=== PATIENT | female | born 2000 | race African-American/Black ===

== ENCOUNTER 2024-08-30 10:25 | Outpatient (REF) | payer OTHER, SELFPAY ==
[2024-08-30 11:22] LABS: Hematocrit 39.3 % (37.0-47.0); Hemoglobin 12.8 g/dl (12.0-16.0); Mean Corpuscular HGB Conc 32.6 g/dl (31.0-35.0); Mean Corpuscular Hemoglobin 27.9 pg (27.0-33.0); Mean Corpuscular Volume 85.8 fL (80.0-98.0); Mean Platelet Volume 10.2 fL (9.4-12.3); Platelet Count 241 X10*3/uL (160-400); Red Blood Count 4.58 X10*6/uL (4.20-5.50); Red Cell Distribution Width 13.8 % (11.0-16.0); White Blood Count 6.9 X10*3/uL (4.8-10.8)
[2024-08-30 11:45] LABS: Estimated Average Glucose 97 mg/dL; Hemoglobin A1C 101.6484 umol/L; Total Hemoglobin (HGBA1C) 3243.7663 umol/L
--- OUTSIDE RECORDS SUMMARY | 2024-08-30 11:49 | XMS_ITS | Encounter Summary ---
Author Organization [employer] Address [address] [place] [address] Care Team Providers Care Horizontal Resaw Operator Name Role Phone Taina Hernandezfer Primary Care Provider Encounter Details Date Type Department Care Team (Latest Contact Info) Description 08/30/2024 Travel Social History Tobacco Use Types Packs/Day Years Used Date Smoking Tobacco: Never Smokeless Tobacco: Never Alcohol Use Standard Drinks/Week Comments Never 0 (1 standard drink = 0.6 oz pur e alcohol) Depression Answer Date Recorded Patient Health Questionnaire-9 Score 18 08/30/2024 Patient Health Questionnaire-9 Score 18 08/30/2024 Last PHQ-9: Questionnaire Data Not on file 0 08/30/2024 Housing Stability Answer Date Recorded What is your housing situation today? I do not have housing (Staying with others, in a hotel, in a senior living, living outside on the street, on a beach, in a car, or in a park 08/30/[address] you li ve. Do you have problems with any of the following? None of the above 08/30/2024 Food Insecurity Answer Date Recorded Within the past 12 months, y ou worried that your food would run out before you got money to buy more: Often true 08/30/2024 Within the past 12 months,th e food you bought just didn't last and you didn't have enough money to get more: Often true Transportation Answer Date Recorded In the past 12 months, has l ack of transportation kept you from medical appts, meetings, work or from getting things needed for daily living? No 08/17/2024 Utilities Answer Date Recorded In the past 12 months, has t he electric, gas, oil or water company threatened to shut off services in your home? No 08/17/2024 Depression Answer Date Recorded Patient Health Questionnaire-2 Score 4 08/30/2024 Internet Access Answer Date Recorded Internet Access Q1 Yes 08/17/2024 Internet Access Q2 Not on file 08/17/2024 Comments No Sex and Gender Information Value Date Recorded Sex Assigned at Female 01/07/2024 10:04 AM EDT Legal Sex Female 10:04 AM EDT Gender Identity Female 01/07/2024 10:04 AM EDT Sexual Orientation Don't know 08/30/2024 8: 23 AM EDT documented as of this encounter Plan of Treatment Not on file documented as of this encounter Visit Diagnoses Not on filedocumented in this encounter Additional Health Concerns Assessment Noted Time PHQ-9 Depression Total Score: 18 025 9:22 AM EDT documented as of this encounter Care Teams Horizontal Resaw Operator Relationship Specialty Start Date End Date Jackie Hernandez DO [address] [place] [phone] PCP - General Family Medicine 08/30/24 documented as of this encounter
--- OUTSIDE RECORDS SUMMARY | 2024-08-30 11:49 | XMS_ITS | Clinical Summary ---
Author Organization [facility] ity Address [address] [place] [address] Care Team Providers Care Heel Sander Name Role Phone Unavailable Primary Care Provider Unavailabl e Social History Tobacco Use Types Packs/Day Years Used Date Smoking Tobacco: Never Assessed Comments Unknown Sex and Gender Information Value Date Recorded Sex Assigned at Not on file Legal Sex Female 8:09 PM EST Gender Identity Not on file Sexual Orientation Not on file Plan of Treatment Health Maintenance Due Date Last Done Comments Gonorrhea/Chlamydia Screening 2001 HPV Vaccines (1 - 3-dose series) 2016 Meningococcal B Vaccine (1 o f 2 - Standard) 2017 DTaP,Tdap,and Td Vaccines (1 - Tdap) 2020 Hepatitis B Vaccines (1 of 3 - 19+ 3-dose series) 2020 Cervical Cancer Screening: P ap Smear 2022 Depression Screening 05/27/2023 HIV Screening 05/27/2023 Hepatitis C Screening 05/27/2023 Social Influencers of Health Screening 05/27/2023 COVID-19 Vaccine (1 - 2023-2 5 season) 2024 Influenza Vaccine (Season Ended) 2025 HIB Vaccines Aged Out No longer eligi ble based on patient's age to complete this topic Hepatitis A Vaccines Aged Out No long er eligible based on patient's age to complete this topic IPV Vaccines Aged Out No longer eligi ble based on patient's age to complete this topic MMR Vaccines Aged Out No longer eligi ble based on patient's age to complete this topic Meningococcal ACWY Vaccine Aged Out N o longer eligible based on patient's age to complete this topic Pneumococcal Vaccine: Pediat rics (0 to 5 Years) and At-Risk Patients (6 to 64 Years) Aged Out No longer eligible b ased on patient's age to complete this topic RSV Immunization Patients Un konrad 20 months Aged Out No longer eligible b ased on patient's age to complete this topic Varicella Vaccines Aged Out No longer eligible based on patient's age to complete this topic
--- OUTSIDE RECORDS SUMMARY | 2024-08-30 11:49 | XMS_ITS | Encounter Summary ---
Author Organization [employer] Address [address] [place] [address] Care Team Providers Care Sequins Spooler Name Role Phone Jackie Hernandez DO Primary Care Provider Encounter Details Date Type Department Care Team (Late st Contact Info) Description 08/30/2024 9:00 AM EDT Office Visit [facility] [address] [place], [place] [phone] Jackie Hernandez DO [address] [place], [place] [phone] Routine history and physical examination of adult (Primary Dx); Anxiety and depression; Mild intermittent asthma without complication; Chronic allergic rhinitis; BMI 20.0-20.9, adult; Encounter for immunization Social History Tobacco Use Types Packs/Day Years Used Date Smoking Tobacco: Never Smokeless Tobacco: Never Tobacco Cessation:Counseling Given: Not Answered Alcohol Use Standard Drinks/Week Comments Never 0 [...] with others, in a hotel, in a skilled nursing, living outside on the street, on a [...] AM EDT documented as of this encounter Last Filed Vital Signs Vital Sign Reading Time Taken Comments Blood Pressure 124/70 08/30/2024 9:09 AM EDT Pulse 100 08/30/2024 9:09 AM EDT Temperature 36.8 ??C (98.3 ??F) 08/30/2024 9:09 AM ED T Respiratory Rate 21 08/30/2024 9:09 AM EDT Oxygen Saturation 99% 08/30/2024 9:09 AM EDT Inhaled Oxygen Concentration - - Weight 55.5 kg (122 lb 4 oz) 08/30/2024 9:09 AM EDT Height 162.6 cm (5' 4 ) 08/30/2024 9:09 AM EDT Body Mass Index 20.98 08/30/2024 9:09 AM EDT documented in this encounter Plan of Treatment Scheduled Orders Name Type Priority Associated Diagnoses Orde r Schedule T4, Free Lab Routine Routine history and physical examination of adult Anxiety and depression Mild intermittent asthma without complication Chronic allergic rhinitis BMI 20.0-20.9, adult Expected: 08/30/2024 (Approximate), Expires: 08/30/2025 Lipid Panel, Standard Lab Routine Routine history and physical examination of adult Anxiety and depression Mild intermittent asthma without complication Chronic allergic rhinitis BMI 20.0-20.9, adult Expected: 08/30/2024 (Approximate), Expires: 08/30/2025 TSH Lab Routine Routine history and physical examination of adult Anxiety and depression Mild intermittent asthma without complication Chronic allergic rhinitis BMI 20.0-20.9, adult Expected: 08/30/2024 (Approximate), Expires: 08/30/2025 Vitamin D, 25-Hydroxy, Total, Immunoassay Lab Routine Routine history and physical examination of adult Anxiety and depression Mild intermittent asthma without complication Chronic allergic rhinitis BMI 20.0-20.9, adult Expected: 08/30/2024 (Approximate), Expires: 08/30/2025 Hepatic Function Panel Lab Routine Routine history and physical examination of adult Anxiety and depression Mild intermittent asthma without complication Chronic allergic rhinitis BMI 20.0-20.9, adult Expected: 08/30/2024 (Approximate), Expires: 08/30/2025 Basic Metabolic Panel Lab Routine Routine history and physical examination of adult Anxiety and depression Mild intermittent asthma without complication Chronic allergic rhinitis BMI 20.0-20.9, adult Expected: 08/30/2024 (Approximate), Expires: 08/30/2025 Hepatitis B surface antigen, EIA Lab Routine Routine history and physical examination of adult Anxiety and depression Mild intermittent asthma without complication Chronic allergic rhinitis BMI 20.0-20.9, adult Expected: 08/30/2024 (Approximate), Expires: 08/30/2025 Chlamydia/N. Gonorrhoeae RNA, TMA, Urogenitial Microbiology Routine Routine history and physical examination of adult Anxiety and depression Mild intermittent asthma without complication Chronic allergic rhinitis BMI 20.0-20.9, adult Ordered: 08/30/2024 HIV-1/2 Antigen and Antibodies, Fourth Generation, with Reflexes Lab Routine Routine history and physical examination of adult Anxiety and depression Mild intermittent asthma without complication Chronic allergic rhinitis BMI 20.0-20.9, adult Expected: 08/30/2024 (Approximate), Expires: 08/30/2025 Hepatitis C Antibody with Reflex to HCV, RNA, Quantitative, Real-Time PCR Lab Routine Routine history and physical examination of adult Anxiety and depression Mild intermittent asthma without complication Chronic allergic rhinitis BMI 20.0-20.9, adult Expected: 08/30/2024, Expires: 08/30/2025 RPR (Monitor) with Reflex to??Titer Lab Routine Routine history and physical examination of adult Anxiety and depression Mild intermittent asthma without complication Chronic allergic rhinitis BMI 20.0-20.9, adult Expected: 08/30/2024, Expires: 08/30/2025 Hepatitis B Surface Antibody, Qualitative Lab Routine Routine history and physical examination of adult Anxiety and depression Mild intermittent asthma without complication Chronic allergic rhinitis BMI 20.0-20.9, adult Expected: 08/30/2024 (Approximate), Expires: 08/30/2025 Hepatitis A Antibody, Total Lab Routine Routine history and physical examination of adult Anxiety and depression Mild intermittent asthma without complication Chronic allergic rhinitis BMI 20.0-20.9, adult Expected: 08/30/2024 (Approximate), Expires: 08/30/2025 Hepatitis B Core Antibody, Total Lab Routine Routine history and physical examination of adult Anxiety and depression Mild intermittent asthma without complication Chronic allergic rhinitis BMI 20.0-20.9, adult Expected: 08/30/2024 (Approximate), Expires: 08/30/2025 Herpes Simplex Virus 1 and 2 (IgG), Type-Specific Antibodies Lab Routine Routine history and physical examination of adult Anxiety and depression Mild intermittent asthma without complication Chronic allergic rhinitis BMI 20.0-20.9, adult Expected: 08/30/2024 (Approximate), Expires: 08/30/2025 T-SPOT??.TB Lab Routine Routine history and physical examination of adult Anxiety and depression Mild intermittent asthma without complication Chronic allergic rhinitis BMI 20.0-20.9, adult Expected: 08/30/2024 (Approximate), Expires: 08/30/2025 documented as of this encounter Procedures Procedure Name Priority Date/Time Associated Diagnosis Comments CBC Routine 08/30/2024 10:31 AM EDT Routine history and physical examination of adult Anxiety and depression Mild intermittent asthma without complication Chronic allergic rhinitis BMI 20.0-20.9, adult HEMOGLOBIN A1C Routine 08/30/2024 10:31 AM EDT Routine history and physical examination of adult Anxiety and depression Mild intermittent asthma without complication Chronic allergic rhinitis BMI 20.0-20.9, adult documented in this encounter Results * CBC (08/30/2024 10:31 AM EDT) White Blood Count 6.9 4.8 - 10.8 X10*3/uL [facility] Red Blood Count 4.58 4.20 - 5.50 X10*6/uL [facility] Hemoglobin 12.8 12.0 - 16.0 g/dl [facility] Hematocrit 39.3 37.0 - 47.0 % [facility] Mean Corpuscular Volume 85.8 80.0 - 98.0 fL [facility] Mean Corpuscular Hemoglobin 27.9 27.0 - 33.0 pg [facility] Mean Corpuscular HGB Conc 32.6 31.0 - 35.0 g/dl [facility] Red Cell Distribution Width 13.8 11.0 - 16.0 % [facility] Platelet Count 241 160 - 400 X10*3/uL [facility] Mean Platelet Volume 10.2 9.4 - 12.3 fL [facility] NRBC Pct Auto 0.0 0.0 - 0.2 /100WBC [facility] NRBC Abs Auto 0.000 0.0 - 0.012 X10*3/uL [facility] Blood Venous blood specimen / Unknown 08/30/2024 10:31 AM EDT 08/30/2024 11:12 AM EDT us Jackie Hernandez DO LAB BLOOD ORDERABLES Final R esult [facility] [address] [place] [phone] * Hemoglobin A1c (08/30/2024 10:31 AM EDT) Hemoglobin A1c 5.0 <6.0 % [facility] Comment:Hemoglobin A1C Refer ence Range Adults: 4.8 - 6.0 % Non diabetic: < 6.0 % Goal: < 7.0 %Additional Action Suggested: > 8.0 %Note: Hemoglobin A1c results are invalid for patients with abnormal amounts of HbF. Blood transfusions may impact the HbA1c concentration in the patient sample. Estimated Average Glucose 97 mg/dL [facility] Comment:eAG = Estimated ave rage glucose which is %A1C expressed asaverage glucose, using the formula of the E1W-ZjwqejjAlaohek Glucose study (ADAG), Diabetes Care, Vol.31,#8,Dec. 2007 Blood Venous blood specimen / Unknown 08/30/2024 10:31 AM EDT 08/30/2024 11:12 AM EDT us Jackie Hernandez DO LAB BLOOD ORDERABLES Final R esult [facility] [address] [place] [phone] [phone] documented in this encounter Visit Diagnoses Diagnosis Routine history and physical examination of adult- Primary Anxiety and depression Mild intermittent asthma without complication Chronic allergic rhinitis BMI 20.0-20.9, adult Encounter for immunization documented in this encounter Additional Health Concerns Assessment Noted Time PHQ-9 Depression Total Score: 18 025 9:22 AM EDT documented as of this encounter Care Teams Sequins Spooler Relationship Specialty Start Date End Date Jackie Hernandez DO [address] [place] [address] PCP - General Family Medicine 08/30/24 documented as of this encounter
--- OUTSIDE RECORDS SUMMARY | 2024-08-30 11:49 | XMS_ITS | Clinical Summary ---
Author Organization [employer] Address [address] [facility] [address] [place] [address] Care Team Providers Care Boat Carpenter Mechanic Name Role Phone Jackie Hernandez DO Primary Care Provider [phone] Medications cetirizine (ZyrTEC) 10 MG tablet Take 10 mg by mouth. 05/18/2023 Active albuterol (ProAir HFA) 108 (90 Base) MCG/ACT inhaler Inhale. 04/07/2019 Act patrick EPINEPHrine (EpiPen 2-Florencio) 0.3 MG/0.3ML injection syringe Inject 0.3 mg into the muscle. 02/04/2018 Active Active Problems Problem Noted Date Diagnosed Date Mild intermittent asthma 08/30/2024 Allergic rhinitis 08/30/2024 Allergic reaction to fruit 08/30/2024 Encounters Date Type Department Care Team Description 08/30/2024 9:00 AM EDT Office Visit [facility] [address] [place] [phone] Jackie Hernandez DO Routine history and physical examination of adult (Primary Dx); Anxiety and depression; Mild intermittent asthma without complication; Chronic allergic rhinitis; BMI 20.0-20.9, adult; Encounter for immunization 08/30/2024 Travel 08/17/2024 Patient Outreach [facility] [address] [place] [address] Jackie Hernandez DO Pre-visit Planning (SDOH negative, Tobacco screening negative) 06/16/2024 Telephone [facility] [address] [place] [phone] Jacky Gross MD new patient appt. from Last 3 Months Immunizations Name Administration Dates Next Due DT (pediatric) 01/07/2006 DTaP 05/17/2003,07/19/2002,03/24/2002 ,01/24/2002 HPV, Quadrivalent 04/08/2012,05/14/2011,03/09/20 11 Hep A, Unspecified 02/12/2010,10/09/2008 Hep B, Unspecified 01/07/2006,03/24/2002, 002,2001 HiB, unspecified 01/07/2006,05/17/2003, 2,01/24/2002 IPV 01/24/2007,07/19/2002,03/24/2002 ,01/24/2002 Influenza Whole 03/09/2011 Influenza, IIV3, injectable 04/07/2019,1 05/16/2017,01/07/2017,06/28/2014, 04/08/2012,02/12/2010 MMR 01/07/2006,05/17/2003 Meningococcal ACWY, unspecified 04/07/2019,06/09 Pneumococcal Conjugate PCV 20 08/30/2024 Pneumococcal Conjugate PCV 7 01/07/2006, 01/07/2006,11/07/2003,07/19/2002, 03/24/2002,01/24/2002 Tdap 08/30/2024,06/09/2013 Varicella 01/07/2006,05/17/2003 Family History Medical History Relation Name Comments Autism Brother Prediabetes Father Bipolar disorder Mother Diabetes Paternal Grandfather Relation Name Status Comments Brother Father Mother Paternal Grandfather Social History Tobacco Use Types Packs/Day Years [...] with others, in a hotel, in a halfway, living outside on the street, on a [...] Don't know 08/30/2024 8: 23 AM EDT Last Filed Vital Signs Vital Sign Reading [...] Mass Index 20.98 08/30/2024 9:09 AM EDT Plan of Treatment Health Maintenance Due Date Last Done Comments Chlamydia and Gonorrhea Screening 2001 HIV Screening 2001 Family Planning (PISQ) 2016 Hepatitis C Screening 11/22/2019 Pap Smear 2022 COVID-19 Vaccine ( season) 2024 Influenza Vaccine (#1) 2024 9, 03/16/2018, 01/07/2017, Additional history exists Alcohol/Substance Use Screening 08/30/2025 08/30/2024 Depression Screening 08/30/2025 08/30/2024, 08/31/19 SDOH Screening 08/30/2025 08/30/2024 Tobacco Screening 08/30/2025 08/30/2024 DTaP/Tdap/Td Vaccines (7 - Td or Tdap) 08/30/2034 08/30/2024, 06/09/2013, 05/17/2003, Additional history exists Zoster Vaccines (1 of 2) 11/22/2051 RSV Patients and Patients Aged 60 years or older (1 - 1-dose 75+ series) 2076 HIB Vaccines Completed 01/07/2006, 05/03, 03/24/2002, Additional history exists Hepatitis B Vaccines Completed 01/07/2006, 03/24/2002, 01/24/2002, Additional history exists IPV Vaccines Completed 01/24/2007, 07/01, 03/24/2002, Additional history exists Hepatitis A Vaccines Completed 02/12/2010, 10/10/19 09 HPV Vaccines Completed 04/08/2012, 05/03, 03/09/2011 Meningococcal Vaccine Completed 04/07/2019, 014 Pneumococcal Vaccine: Pediatrics (0 to 5 Years) and At-Risk Patients (6 to 49) Years) Completed 08/30/2024, 01/07/2006, 01/07/2006, Additional history exists RSV under 20 months Aged Out No longe r eligible based on patient's age to complete this topic Rotavirus Vaccines Aged Out No longer eligible based on patient's age to complete this topic Procedures Procedure Name Priority Date/Time Associated Diagnosis Comments CBC Routine 08/30/2024 10:31 AM EDT Routine history and physical examination of adult Anxiety and depression Mild intermittent asthma without complication Chronic allergic rhinitis BMI 20.0-20.9, adult HEMOGLOBIN A1C Routine 08/30/2024 10:31 AM EDT Routine history and physical examination of adult Anxiety and depression Mild intermittent asthma without complication Chronic allergic rhinitis BMI 20.0-20.9, adult from Last 3 Months Results * CBC (08/30/2024 10:31 AM EDT) White Blood Count 6.9 4.8 - 10.8 X10*3/uL [facility] Red Blood Count 4.58 4.20 - 5.50 X10*6/uL [facility] Hemoglobin 12.8 12.0 - 16.0 g/dl [facility] Hematocrit 39.3 37.0 - 47.0 % [facility] Mean Corpuscular Volume 85.8 80.0 - 98.0 fL [facility] Mean Corpuscular Hemoglobin 27.9 27.0 - 33.0 pg [facility] Mean Corpuscular HGB Conc 32.6 31.0 - 35.0 g/dl [facility] Red Cell Distribution Width 13.8 11.0 - 16.0 % [facility] Platelet Count 241 160 - 400 X10*3/uL [facility] Mean Platelet Volume 10.2 9.4 - 12.3 fL [facility] NRBC Pct Auto 0.0 0.0 - 0.2 /100WBC [facility] NRBC Abs Auto 0.000 0.0 - 0.012 X10*3/uL [facility] Blood Venous blood specimen / Unknown 08/30/2024 10:31 AM EDT 08/30/2024 11:12 AM EDT us Jackie Hernandez DO LAB BLOOD ORDERABLES Final R esult [facility] [address] [place] [phone] * Hemoglobin A1c (08/30/2024 10:31 AM EDT) Hemoglobin A1c 5.0 <6.0 % [facility] Comment:Hemoglobin A1C Refer ence Range Adults: 4.8 - 6.0 % Non diabetic: < 6.0 % Goal: < 7.0 %Additional Action Suggested: > 8.0 %Note: Hemoglobin A1c results are invalid for patients with abnormal amounts of HbF. Blood transfusions may impact the HbA1c concentration in the patient sample. Estimated Average Glucose 97 mg/dL [facility] Comment:eAG = Estimated ave rage glucose which is %A1C expressed asaverage glucose, using the formula of the W2B-QdklnqmNwbfxbk Glucose study (ADAG), Diabetes Care, Vol.31,#8,Dec. 2007 Blood Venous blood specimen / Unknown 08/30/2024 10:31 AM EDT 08/30/2024 11:12 AM EDT us Jackie Hernandez DO LAB BLOOD ORDERABLES Final R esult [facility] [address] [place] [phone] from Last 3 Months Insurance [employer] Care Teams Boat Carpenter Mechanic Relationship Specialty Start Date End Date Jackie Hernandez DO [address] [place] [phone] PCP - General Family Medicine 08/30/24
[2024-08-30 12:10] LABS: Alanine Aminotransferase 26 U/L (0-31); Albumin Level 4.4 g/dL (3.5-5.0); Anion Gap 13 (12-20); Aspartate Amino Transferase 25 U/L (5-31); Bilirubin Direct 0.4 mg/dL (0.0-0.5); Bilirubin Total 1.3 mg/dL (0.0-1.0); Blood Urea Nitrogen 14 mg/dL (9-16); Calcium 9.1 mg/dL (8.4-10.2); Carbon Dioxide 23 mmol/L (22-29); Chloride 104 mmol/L (96-108); Cholesterol 134 mg/dL (<200); Estimated Glomerular Filt Rate > 60; Glucose Random 93 mg/dL (60-115); Potassium 3.7 mmol/L (3.3-5.1); Sodium 136 mmol/L (135-145); Total Protein 7.3 g/dL (6.5-8.0); Triglycerides 33 mg/dL (<150)
[2024-08-30 12:11] LABS: Alkaline Phosphatase 66 U/L (39-117); HDL Cholesterol 83 mg/dL (>40); LDL Cholesterol Calculated 45 mg/dL (<100)
[2024-08-30 12:15] LABS: HBS Num1 0.72 mIU/mL (0-7.99); HBc Num1 0.15 S/CO (0.00-0.79); HBsAGNum1 0.43 S/CO (0.00-0.99); HIV AB/AG Nonreactive (Nonreactive); HIV Num 1 0.05 S/CO (0.00-0.99); Hepatitis B Core Antibody Nonreactive (Nonreactive); Hepatitis B Surface Antigen Negative (Negative); ~HepC Num1 0.07 S/CO (0.00-0.79); ~Hepatitis B Surface Antibody NONREACTIVE (Nonreactive); ~Hepatitis C Antibody Nonreactive (Nonreactive)
[2024-08-30 12:17] LABS: Free T4 (Free Thyroxine) 1.16 ng/dL (0.71-1.85); Thyroid Stimulating Hormone 0.48 uIU/mL (0.32-4.0); Vitamin D 25-OH Total 8.3 ng/mL (>30)
[2024-08-30 13:29] LABS: CT PCR NOT DETECTED (Not Detect.); NG PCR NOT DETECTED (Not Detect.)
[2024-08-31 08:22] LABS: Hepatitis A Antibody IgG REACTIVE (Nonreactive); ~Hepatitis A Antibody IgG 4.84 S/CO (0.00-0.99)
[2024-08-31 08:43] LABS: Herpes Simplex Type 1 IgG <0.90 index; Herpes Simplex Type 2 IgG <0.90 index
[2024-08-31 11:39] LABS: RPR Rapid Plasma Reagin NON-REACTIVE (NON-REACTIVE)
[2024-09-02 11:13] LABS: TS Negative Control Passed; TS Panel A 0; TS Panel B 0; TS Positive Control Passed; TSpotTB Negative (Negative)
== END 2024-08-30 10:26 | disposition home or self-care (01) ==
LOC: HO.HHCL 10:25
PROVIDERS: Visit Provider Family Medicine
DX: Z00.00 Encounter for general adult medical examination without abnormal findings (principal); F41.9 Anxiety disorder, unspecified; F32.A Depression, unspecified; J45.20 Mild intermittent asthma, uncomplicated; J30.9 Allergic rhinitis, unspecified; Z68.20 Body mass index [BMI] 20.0-20.9, adult
CPT/HCPCS: 80048; 80061; 80076; 82306; 83036; 84439; 84443; 85027; 86481; 86592; 86695; 86696; 86704; 86706; 86708; 86803; 87340; 87389; 87491; 87591